=== PATIENT | male | born 1995 | race African-American/Black ===

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

== ENCOUNTER 2017-02-09 17:26 | Emergency (ER) | payer MEDICAID ==
[~2017-02-09] VITALS: Ht 170.2 cm; Wt 71.0 kg
[2017-02-09 17:27] VITALS: BP 136/74; PULSE 102; RESP 20; TEMP 100.7; O2SAT 99
[2017-02-09] MEDS ORDERED: KETOROLAC TROMETHAMINE 30 MG/ML (IVP) VIAL IV PUSH ONE (18:30)
[2017-02-09] MEDS ORDERED: SODIUM CHLORIDE 0.9% FLUSH 10 ML FLUSH IV FLUSH PRN (18:30)
[2017-02-09] MEDS ORDERED: AMPICILLIN-SULBACTAM INJ 3 GM in SODIUM CHLORIDE 0.9% INJ 100 ML IV ONE (18:30)
--- NOTE | 2017-02-09 18:32 | PD ---
HPI Chief Complaint: Oral / Dental Pain or Problem Time Seen by Provider: 18:22 Travel History International Travel<30 days: No Contact w/Intl Traveler<30days: No Traveled to known affect area: No History of Present Illness HPI 21-year-old male here for evaluation of painful swollen lips with painful lesions on his lips. The patient reports that 5 days ago he had upper braces applied to his teeth. He noticed painful swelling and lesions to his lips 2 days afterwards. He went to his refrigerating technician and have the wire of the braces removed. He was advised to apply Abreva. Pain and swelling has been worsening. He was noted to have a fever in triage and reports sinus congestion since last week. Pain is moderate to severe, constant, worse with palpation. He denies throat pain or difficulty swallowing. He has never had similar lesions in the past. No history of herpes. REPLACED BY [facility] Past Medical History Respiratory: Yes (ASTHMA) Social History Alcohol Use: No Tobacco Use: No Substance Use: No Allergies-Medications (Allergen,Severity, Reaction): Coded Allergies: No Known Allergies (Unverified , 08/11/16) Reported Meds & Prescriptions Reported Meds & Active Scripts Active Mupirocin Topical (Mupirocin) 2 % Oint 1 Applic TOPICAL BID Keflex (Cephalexin) 500 Mg Cap 500 Mg PO Q8H Acyclovir 800 Mg Tab 800 Mg PO 5 TIMES A DAY 7 Days Review of Systems Except as stated in HPI: all other systems reviewed are Neg Physical Exam Narrative GENERAL: Well-developed, well-nourished, comfortable, no apparent distress. SKIN: Focused skin assessment warm/dry. HEAD: Atraumatic. Normocephalic. EYES: Pupils equal and round. No scleral icterus. No injection or drainage. ENT: Mucous membranes pink and moist. Moderate upper and lower lip swelling with the lower lip having several vesicular type lesions with overlying honeycombing/crusting. Upper lip has only a few of these lesions. There are no other intraoral lesions. No tongue lesions. Normal pharynx. NECK: Trachea midline. No JVD. CARDIOVASCULAR: Regular rate and rhythm. RESPIRATORY: No accessory muscle use. Clear to auscultation. Breath sounds equal bilaterally. MUSCULOSKELETAL: No obvious deformities. No clubbing. No cyanosis. No edema. NEUROLOGICAL: Awake and alert. No obvious cranial nerve deficits. Motor grossly within normal limits. Normal speech. PSYCHIATRIC: Appropriate mood and affect; insight and judgment normal. Data Data Last Documented VS Vital Signs Date Time Temp Pulse Resp B/P (MAP) Pulse Ox O2 Delivery O2 Flow Rate FiO2 02/09/17 18:45 99.0 100 19 123/73 (90) 100 Nasal Cannula Orders Orders Complete Blood Count With Diff (02/09/17 18:29) Comprehensive Metabolic Panel (02/09/17 18:29) Iv Access Insert/Monitor (02/09/17 18:29) Ecg Monitoring (02/09/17 18:29) Oximetry (02/09/17 18:29) Sodium Chloride 0.9% Flush (Ns Flush) (02/09/17 18:30) Ampicillin-Sulbactam Inj (Unasyn Inj) (02/09/17 18:30) Ketorolac Inj (Toradol Inj) (02/09/17 18:30) Acyclovir (Zovirax) (02/09/17 19:00) Ed Discharge Order (02/09/17 20:02) Labs Laboratory Tests Test 02/09/17 18:40 White Blood Count 4.3 TH/MM3 Red Blood Count 4.95 MIL/MM3 Hemoglobin 11.3 GM/DL Hematocrit 35.3 % Mean Corpuscular Volume 71.2 FL Mean Corpuscular Hemoglobin 22.8 PG Mean Corpuscular Hemoglobin Concent 32.0 % Red Cell Distribution Width 12.8 % Platelet Count 393 TH/MM3 Mean Platelet Volume 8.4 FL Neutrophils (%) (Auto) 57.1 % Lymphocytes (%) (Auto) 28.4 % Monocytes (%) (Auto) 13.3 % Eosinophils (%) (Auto) 0.5 % Basophils (%) (Auto) 0.7 % Neutrophils # (Auto) 2.5 TH/MM3 Lymphocytes # (Auto) 1.2 TH/MM3 Monocytes # (Auto) 0.6 TH/MM3 Eosinophils # (Auto) 0.0 TH/MM3 Basophils # (Auto) 0.0 TH/MM3 CBC Comment DIFF FINAL Differential Comment Blood Urea Nitrogen 9 MG/DL Creatinine 1.17 MG/DL Random Glucose 97 MG/DL Total Protein 8.3 GM/DL Albumin 3.5 GM/DL Calcium Level 8.4 MG/DL Alkaline Phosphatase 44 U/L Aspartate Amino Transf (AST/SGOT) 26 U/L Alanine Aminotransferase (ALT/SGPT) 20 U/L Total Bilirubin 0.8 MG/DL Sodium Level 134 MEQ/L Potassium Level 3.7 MEQ/L Chloride Level 101 MEQ/L Carbon Dioxide Level 29.0 MEQ/L Anion Gap 4 MEQ/L Estimat Glomerular Filtration Rate 97 ML/MIN [facility] Medical Decision Making Medical Screen Exam Complete: Yes Emergency Medical Condition: Yes Differential Diagnosis HSV-1, impetigo, cellulitis, Chen-Rich syndrome unlikely Narrative Course Initial vital signs show heart rate 102, blood pressure 136/74, pulse ox 99% on room air, oral temp of 100.7F. Repeat vital signs show heart rate 100, blood pressure 123/73, pulse ox 100% on room air, oral temp of 99 from high. CBC shows to be BC 4.3, hemoglobin 11.3, hematocrit 35.3, platelets 393. CMP is essentially unremarkable. The patient was given a liter normal saline IV and a dose of IV Unasyn as well as a dose of oral acyclovir. The patient has gingivostomatitis that appears to be herpetic in nature. He also has some honeycombing/crusting of the lesions which appear to be superinfected. Plan is to discharge patient home with a perception for acyclovir, Keflex, and mupirocin. He was advised to follow up with his refrigerating technician this week as well as a primary care physician this week. I also advised the patient that he should be tested for HIV as an outpatient. He was informed on when to return to the emergency department. He verbalizes understanding and agreement with plan. Diagnosis Primary Impression: Gingivostomatitis Additional Impression: Impetigo Referrals: [facility] 3 days Dentist 3 days Primary Care Physician 3 days Additional Instructions: Follow-up with a primary care physician this week. Follow-up with your refrigerating technician this week. Take Tylenol and ibuprofen for pain. Return to the emergency department for worsening symptoms or any other concerns. Scripts Mupirocin Topical (Mupirocin Topical) 2 % Oint 1 APPLIC TOPICAL BID for Mgmt Bacterial Infection, #1 TUBE 0 Refills Prov: Larry Irby MD 02/09/17 Cephalexin (Keflex) 500 Mg Cap 500 MG PO Q8H for Infection, #30 CAP 0 Refills Prov: Larry Irby MD 02/09/17 Acyclovir (Acyclovir) 800 Mg Tab 800 MG PO 5 TIMES A DAY for Mgmt Viral Infection for 7 Days, TAB 0 Refills Prov: Larry Irby MD 02/09/17 Disposition: 01 DISCHARGE HOME Condition: Stable Larry Irby MD Feb 09, 2017 18:32
[2017-02-09 18:45] VITALS: BP 123/73; PULSE 100; RESP 19; TEMP 99; O2SAT 100
[2017-02-09] MEDS ORDERED: ACYCLOVIR 800 MG TAB PO ONE (19:00)
[2017-02-09 19:21] LABS: AUTOMATED NEUTROPHIL # 2.5 TH/MM3 (1.8-7.7); BASOPHIL % 0.7 % (0.0-2.0); EOSINOPHIL % 0.5 % (0.0-4.0); HEMATOCRIT 35.3 % (39.0-51.0); HEMO FLAGS DIFF FINAL; LYMPH % 28.4 % (9.0-44.0); LYMPHOCYTE # 1.2 TH/MM3 (1.0-4.8); MEAN CELL VOLUME 71.2 FL (80.0-100.0); MEAN CORPUSCULAR HEMOGLOBIN 22.8 PG (27.0-34.0); MONO % 13.3 % (0.0-8.0); NEUT % 57.1 % (16.0-70.0); PLATELET COUNT 393 TH/MM3 (150-450); RED BLOOD COUNT 4.95 MIL/MM3 (4.50-5.90); RED CELL DISTRIBUTION WIDTH 12.8 % (11.6-17.2); WHITE BLOOD COUNT 4.3 TH/MM3 (4.0-11.0)
[2017-02-09 19:26] LABS: ANION GAP 4 MEQ/L (5-15); AST (GOT) 26 U/L (15-39); BLOOD UREA NITROGEN 9 MG/DL (7-18); CHLORIDE 101 MEQ/L (98-107); GLOMERULAR FILTRATION RATE 97 ML/MIN (>89); POTASSIUM 3.7 MEQ/L (3.5-5.1); SODIUM (NA) 134 MEQ/L (136-145)
[2017-02-09 19:30] LABS: ALKALINE PHOSPHATASE 44 U/L (45-117); ALT (GPT) 20 U/L (9-52); TOTAL BILIRUBIN ADULT 0.8 MG/DL (0.2-1.0)
[2017-02-09] MEDS ORDERED: MUPI2OIN TOPICAL (20:01)
[2017-02-09] MEDS ORDERED: ACYC800T PO (20:01)
[2017-02-09] MEDS ORDERED: CEPH-460 PO (20:01)
== END 2017-02-09 20:18 | disposition home or self-care (01) ==
LOC: NEPD 17:26
DX: K05.10 Chronic gingivitis, plaque induced (principal); L01.00 Impetigo, unspecified; Z87.09 Personal history of other diseases of the respiratory system
CPT/HCPCS: 80053; 85025; 96365; 96375; 99284; J0295; J1885